=== PATIENT | female | born 1965 | race Caucasian/White ===

== ENCOUNTER 2020-09-28 18:03 | Observation (INO) ==
[2020-09-28 19:04] LABS: Basophils % 0.2 %; Hemoglobin 13.5 g/dL (11.5-15.4); Immature Granulocytes % 0.5 % (0-4); Lymphocytes # 1.1 K/mcL (0.6-4.6); Lymphocytes % 27.1 %; Mean Corpuscular HGB Conc 32.1 g/dL (31.6-35.5); Mean Corpuscular Hemoglobin 30.3 pg (28.0-33.3); Mean Corpuscular Volume 94.2 fL (83.0-100.0); Mean Platelet Volume 11.4 fL (9.4-12.4); Monocytes # 0.4 K/mcL (0.0-1.3); Monocytes % 8.3 %; Neutrophils # 2.7 K/mcL (1.6-8.9); Platelet Count 159 K/mcL (140-400); Red Blood Count 4.46 M/mcL (3.82-4.97); Red Cell Distribution Width 13.2 % (11.5-14.5); Segmented Neutrophils % 63.9 %; White Blood Count 4.2 K/mcL (4.3-11.1)
[2020-09-28 19:09] LABS: INR 1.2; Prothrombin Time 13.5 Seconds (9.4-12.1)
[2020-09-28 19:12] LABS: Activated Partial Thrombo Time 26.9 Seconds (26.0-36.0)
[2020-09-28 19:24] LABS: BUN/Creatinine Ratio 11 (6-26); Blood Urea Nitrogen 8 mg/dL (6-20); Carbon Dioxide 26 mEq/L (23-29); Chloride 102 mEq/L (98-107); Glucose 110 mg/dL (70-105); Osmolality,Calculated 283 (280-300); Potassium 3.3 mEq/L (3.5-5.1); Sodium 137 mEq/L (136-145); Troponin I < 0.03 ng/mL (< 0.04); eGFR For African Americans > 60 (> 60); eGFR For Non-African Americans > 60 (> 60)
[2020-09-28 20:16] LABS: Bilirubin,Urine Small (Negative); Blood,Urine Negative (Negative); Clarity,Urine Turbid (Clear); Glucose,Urine (UA) Normal (Normal); Ketones,Urine 15 mg/dL (Negative); Leukocyte Esterase,Urine Negative (Negative); Nitrite,Urine Negative (Negative); Protein,Urine 100 mg/dL (Neg-Trace); Specific Gravity,Urine >= 1.030 (1.010-1.025); Urobilinogen,Urine Normal (Normal)
[2020-09-28 20:17] LABS: Color,Urine Dark Yellow (Yellow)
[2020-09-28 20:18] LABS: Bacteria,Urine Moderate per hpf (None-Few); Squamous Epithelial Cell,Urine Many per hpf (None-Few)
[2020-09-28 20:19] LABS: Mucus,Urine Few per lpf (None-Few); RBC,Urine 0-3 per hpf (0-3); WBC,Urine 0-3 per hpf (0-3)
[2020-09-28 20:20] LABS: Amorphous Sediment,Urine Few per hpf (None-Few)
[2020-09-28] MEDS ORDERED: Azithromycin 500 MG in 0.9 % Sodium Chloride 250 ML IVPB ONE (21:32)
[2020-09-28] MEDS ORDERED: Dexamethasone 4 MG/ML VIAL PO ONE (21:32)
[2020-09-29] MEDS ORDERED: Potassium Chloride Elixir 20 MEQ/15 ML UDC PO ONE (01:03)
[2020-09-29] MEDS ORDERED: Acetaminophen 325 MG TABLET PO PRN (02:23)
[2020-09-29] MEDS ORDERED: Ondansetron ODT 4 MG TAB.RAPDIS SL PRN (02:23)
[2020-09-29] MEDS ORDERED: Naloxone 0.4 MG/ML INJ IVP PRN (02:23)
[2020-09-29 07:00] LABS: Hematocrit 39.7 % (35.3-44.9); Hemoglobin 12.8 g/dL (11.5-15.4); Mean Corpuscular HGB Conc 32.2 g/dL (31.6-35.5); Mean Corpuscular Hemoglobin 30.2 pg (28.0-33.3); Mean Corpuscular Volume 93.6 fL (83.0-100.0); Mean Platelet Volume 11.4 fL (9.4-12.4); Platelet Count 168 K/mcL (140-400); Red Blood Count 4.24 M/mcL (3.82-4.97); Red Cell Distribution Width 13.2 % (11.5-14.5); White Blood Count 2.2 K/mcL (4.3-11.1)
[2020-09-29 07:45] LABS: BUN/Creatinine Ratio 13 (6-26); Blood Urea Nitrogen 8 mg/dL (6-20); Calcium 9.1 mg/dL (8.6-10.3); Carbon Dioxide 25 mEq/L (23-29); Chloride 102 mEq/L (98-107); Glucose 161 mg/dL (70-105); Magnesium 2.3 mg/dL (1.6-2.6); Osmolality,Calculated 284 (280-300); Phosphorous 2.8 mg/dL (2.7-4.5); Potassium 4.3 mEq/L (3.5-5.1); Sodium 136 mEq/L (136-145); eGFR For African Americans > 60 (> 60); eGFR For Non-African Americans > 60 (> 60)
[2020-09-29] MEDS: Azithromycin 500 MG in 0.9 % Sodium Chloride 250 ML IVPB SCH (09:11)
[2020-09-29] MEDS: Dexamethasone 4 MG/ML VIAL IVP SCH (09:12)
[2020-09-29] MEDS ORDERED: LANSOPRAZOLE 15 MG PO PRN (11:16)
[2020-09-29] MEDS: BuPROPion XL (24 HR) 150 MG TABLET PO SCH (12:51)
[2020-09-29] MEDS: clonazePAM 0.5 MG TABLET PO SCH (22:31)
[2020-09-30] MEDS ORDERED: *HR* Enoxaparin 40 MG/0.4 ML SYRINGE SQ SCH (06:00)
[2020-09-30 07:31] VITALS: BP 126/86
[2020-09-30 08:01] LABS: Basophils % 0.3 %; Hematocrit 40.1 % (35.3-44.9); Hemoglobin 12.7 g/dL (11.5-15.4); Lymphocytes # 1.4 K/mcL (0.6-4.6); Lymphocytes % 35.5 %; Mean Corpuscular HGB Conc 31.7 g/dL (31.6-35.5); Mean Corpuscular Volume 94.8 fL (83.0-100.0); Mean Platelet Volume 11.2 fL (9.4-12.4); Monocytes # 0.4 K/mcL (0.0-1.3); Monocytes % 8.9 %; Neutrophils # 2.1 K/mcL (1.6-8.9); Platelet Count 213 K/mcL (140-400); Red Blood Count 4.23 M/mcL (3.82-4.97); Red Cell Distribution Width 13.5 % (11.5-14.5); Segmented Neutrophils % 54.3 %
[2020-09-30 08:04] LABS: White Blood Count 3.9 K/mcL (4.3-11.1)
[2020-09-30 08:10] LABS: Platelet Estimate Normal (Normal); Reactive Lymphocytes Present (Not Present)
[2020-09-30 08:22] LABS: Alanine Aminotransferase 24 Units/L (7-52); Albumin 3.7 g/dL (3.5-5.7); Albumin/Globulin Ratio 1.1 (1.1-2.2); Alkaline Phosphatase 52 Units/L (34-104); Aspartate Amino Transferase 21 Units/L (13-39); BUN/Creatinine Ratio 21 (6-26); Bilirubin,Total 0.5 mg/dL (0.3-1.0); Blood Urea Nitrogen 15 mg/dL (6-20); Calcium 9.1 mg/dL (8.6-10.3); Carbon Dioxide 28 mEq/L (23-29); Chloride 102 mEq/L (98-107); Globulin 3.4 g/dL (2.4-3.5); Glucose 128 mg/dL (70-105); Lactate Dehydrogenase 235 Units/L (140-271); Osmolality,Calculated 286 (280-300); Potassium 3.6 mEq/L (3.5-5.1); Sodium 137 mEq/L (136-145); Total Protein 7.1 g/dL (6.4-8.9); eGFR For African Americans > 60 (> 60); eGFR For Non-African Americans > 60 (> 60)
[2020-09-30 08:39] LABS: Ferritin 182 ng/mL (10-120)
[2020-09-30 08:49] LABS: C-Reactive Protein 28 mg/L (Less than 10)
[2020-09-30] MEDS ORDERED: valACYclovir 500 MG TABLET PO SCH (09:00)
[2020-09-30] MEDS ORDERED: Metoprolol 100 MG TABLET PO SCH (09:00)
[2020-09-30] MEDS: clonazePAM 0.5 MG TABLET PO SCH (10:30)
[2020-09-30] MEDS: BuPROPion XL (24 HR) 150 MG TABLET PO SCH (10:31)
[2020-09-30] MEDS: Dexamethasone 4 MG/ML VIAL IVP SCH (10:33)
[2020-09-30] MEDS: Azithromycin 500 MG in 0.9 % Sodium Chloride 250 ML IVPB SCH (10:33)
== END 2020-09-30 14:31 | disposition home health service (06) ==
LOC: CDU 18:03 → EMEROOARM 18:03 → CDU 09-29 01:50
PROVIDERS: ADMIT Student in an Organized Health Care Education/Training Program; ATTEND Student in an Organized Health Care Education/Training Program